=== PATIENT | male | born 1990 | race Two or more races ===

== ENCOUNTER 2018-07-21 02:46 | Emergency (ER) | payer OTHER ==
[~2018-07-21] VITALS: Ht 180.3 cm; Wt 86.2 kg
--- NOTE | 2018-07-21 01:59 | Emergency Room Report ---
History of Present Illness General Chief Complaint: Headache Source: Patient Present Illness HPI Pt. arrested and during arrest was argumentative and then c/o headache and brought to ED. By the time I saw patient he had calmed down and had no actual medical complaint. He admits to drug use. No vomiting, no LOC, no fall, no head injury. No prescription meds. No recent hospitalizations. Allergies: Coded Allergies: No Known Allergies (Unverified , 07/21/18) Nursing Documentation-[facility] Past Medical History: No Stated History Review of Systems Constitutional: Reports: no symptoms Eye: Reports: no symptoms ENT: Reports: no symptoms Respiratory: Reports: no symptoms Cardiovascular: Reports: no symptoms Gastrointestinal: Reports: no symptoms Genitourinary: Reports: no symptoms Musculoskeletal: Reports: no symptoms Skin: Reports: no symptoms Psychiatric: Reports: no symptoms Neurological: Reports: no symptoms Endocrine: Reports: no symptoms Hematologic/Lymphatic: Reports: no symptoms Allergic: Reports: no symptoms All Other Systems: negative except mentioned in HPI Physical Exam Vital Signs Date Time Temp Pulse Resp B/P (MAP) Pulse Ox O2 Delivery O2 Flow Rate FiO2 07/21/18 01:17 98.1 90 15 110/70 98 98.1 Sp02 EP Interpretation: reviewed, normal General Appearance: normal inspection, well appearing, no apparent distress, alert, GCS 15, non-toxic, thin, other - thin, jittery c/w meth Head: normocephalic, atraumatic Eyes: bilateral eye normal inspection, bilateral eye PERRL, bilateral eye EOMI ENT: normal ENT inspection, hearing grossly normal, normal pharynx, no angioedema, normal voice, moist mucus membranes Neck: normal inspection, full range of motion, supple, no meningismus, no bony tend Respiratory: normal inspection, lungs clear, normal breath sounds, no rhonchi, no respiratory distress, no retraction, no accessory muscle use, no wheezing Cardiovascular #1: normal inspection, regular rate, rhythm, no edema Gastrointestinal: normal inspection, normal bowel sounds, non tender, soft, no mass, non-distended Musculoskeletal: gait/station normal, normal range of motion Neurologic: normal inspection, alert, oriented x3, responsive, motor strength/ tone normal Psychiatric: normal inspection, judgement/insight normal, memory normal Suicide Risk Assessment: Suicidal Ideation: No Had intent to initiate attempt: No Pt's plan for suicide attempt: No Has means to complete attempt: No Skin: normal color, no rash, warm/dry, other - scattered extremities abrasions , few scattered bruises, abrasions Medical Decision Making Diagnostic Impression: Primary Impression: Headache ER Course pt. really just wanted water OK to book. Medically cleared. Last Vital Signs Date Time Temp Pulse Resp B/P (MAP) Pulse Ox O2 Delivery O2 Flow Rate FiO2 07/21/18 01:17 98.1 90 15 110/70 98 98.1 Disposition: D/C TO LAW ENFORCEMENT IN [facility] Condition: Stable Patient Instructions: General Headache Without Cause Jamal Jacob M.D. Jul 21, 2018 01:59
[~2018-07-21 02:46] MED LIST: ALBUTEROL2.5 MG/3 M INH; ATIVAN2 MG/1 ML IV; CRANBERRY425 MG GT; HEPARIN SO5000 UNITS INJ; HIBICLENS118 ML TP; IPRATROPIU0.2 MG/1 M HHN; KEPPRA LIQ100 MG/1 M GT; LEVOTHYROXINE50 MCG GT; MIDODRINE HCL10 MG GT; PHENOBARBITAL100 MG ORAL; PROTONIX IV40 MG IV; RANITIDINE HCL150 MG ORAL; SODIUM CHLORI1000 M1 IVLG; TYLENOL650 MG/20. GT; VANCOMYCIN HCL750 MG IV
[2018-07-21 02:50] VITALS: BP 112/71
[2018-07-21 03:45] VITALS: BP 115/72
== END 2018-07-21 03:45 ==
LOC: EDBD 02:46 → EDSEX 02:46 → EMR 03:00
DX: Z02.89 Encounter for other administrative examinations (principal); R51 Headache
CPT/HCPCS: 99283